=== PATIENT | female | born 1950 | race Caucasian/White ===

== ENCOUNTER 2017-07-25 10:52 | Outpatient (CLI) | payer MEDICARE, BC ==
--- NOTE | 2017-07-25 13:03 | RAD ---
FRONTAL AND LATERAL RADIOGRAPH CHEST: Date: 07-25-17 Comparison: 06-26-14 History: Shortness of breath. FINDINGS: There is no pneumothorax, pleural fluid, focal consolidation, or alveolar edema. There is mild promin ence of the cardiac silhouette and mild diffuse increased linear interstitial density. IMPRESSION: Chronic findings as above. No acute findings are seen. POS: [facility]
== END 2017-07-25 10:53 | disposition home or self-care (01) ==
LOC: RAD 10:52
PROVIDERS: ATTEND Internal Medicine Pulmonary Disease
DX: R06.00 Dyspnea, unspecified (principal)
CPT/HCPCS: 71046

== ENCOUNTER 2018-01-23 10:11 | Outpatient (CLI) | payer MEDICARE, BC ==
--- NOTE | 2018-01-23 11:11 | RAD ---
CHEST PA AND LATERAL: Date: 01/23/18 HISTORY: 67-year-old female with history of dyspnea. COMPARISON: 07/25/17. FINDINGS: Heart size is borderline enlarged. No confluent pneumonia, overt edema, or pleural effusion. IMPRESSION: Borderline heart size. Minimal stable chronic changes. Atherosclerosis of aorta. POS: [facility]
== END 2018-01-23 10:12 | disposition home or self-care (01) ==
LOC: RAD 10:11
PROVIDERS: ATTEND Internal Medicine Pulmonary Disease
DX: R06.00 Dyspnea, unspecified (principal); I70.0 Atherosclerosis of aorta
CPT/HCPCS: 71046

== ENCOUNTER 2018-08-13 13:37 | Outpatient (CLI) | payer MEDICARE ==
--- NOTE | 2018-08-13 14:06 | RAD ---
XR Chest Pa Lat @ [facility] HISTORY: Dyspnea COMPARISON: 01/23/2018 FINDINGS: The heart size is borderline but stable.. The lungs are well expanded without focal areas o f consolidation, pneumothorax or pleural effusions. Minimal chronic changes are stable. Mild degenerative changes in the spine.. IMPRESSION: No radiographic evidence of acute cardiopulmonary process.
== END 2018-08-13 13:38 | disposition home or self-care (01) ==
LOC: RAD 13:37
PROVIDERS: ATTEND Internal Medicine Pulmonary Disease
DX: R06.00 Dyspnea, unspecified (principal)
CPT/HCPCS: 71046

== ENCOUNTER 2019-02-11 14:53 | Outpatient (CLI) | payer MEDICARE ==
--- NOTE | 2019-02-17 11:58 | MMO ---
Bilateral MAMMO Bilat Screen [facility]. CLINICAL HISTORY: Patient is 68 years old and is seen for screening. The patient has no family history of breast cancer. The patient has no personal history of cancer. VIEWS: The views performed were: bilateral craniocaudal with tomosynthesis; bilateral mediolateral oblique; and bilateral mediolateral oblique with tomosynthesis. FILMS COMPARED: The present examination has been compared to prior imaging studies performed at [facility] on 02/19/2013, 05/28/2015 and 06/12/2016, and at [facility] on 09/12/2017. This study has been interpreted with the assistance of computer-aided detection. MAMMOGRAM FINDINGS: There are scattered fibroglandular densities. There are stable benign appearing calcifications seen in both breasts. There are also vascular calcifications. There are no suspicious masses, suspicious calcifications, or new areas of architectural distortion. IMPRESSION: THERE IS NO MAMMOGRAPHIC EVIDENCE OF MALIGNANCY. A ROUTINE FOLLOW-UP MAMMOGRAM IN 1 YEAR IS RECOMMENDED. THE RESULTS OF THIS EXAM WERE SENT TO THE PATIENT. ACR BI-RADS Category 2 - Benign finding MAMMOGRAPHY NOTE: 1. A negative mammogram report should not delay a biopsy if a dominant of clinically suspicious mass is present. 2. Approximately 10% to 15% of breast cancers are not detected by mammography. 3. Adenosis and dense breasts may obscure an underlying neoplasm. Reported by: ROMY LOCKE MD Electonically Signed: [id number]
== END 2019-02-11 14:54 | disposition home or self-care (01) ==
LOC: BICMAMMO 14:53
PROVIDERS: ATTEND Obstetrics & Gynecology
DX: Z12.31 Encounter for screening mammogram for malignant neoplasm of breast (principal)
CPT/HCPCS: 77063; 77067

== ENCOUNTER 2020-02-27 14:33 | Outpatient (CLI) | payer MEDICARE ==
--- NOTE | 2020-02-27 15:10 | MMO ---
Bilateral MAMMO Bilat Screen [facility]. CLINICAL HISTORY: Patient is 70 years old and is seen for screening. The patient has no family history of breast cancer. The patient has no personal history of cancer. VIEWS: The views performed were: bilateral craniocaudal with tomosynthesis and bilateral mediolateral oblique with tomosynthesis. FILMS COMPARED: The present examination has been compared to prior imaging studies performed at [facility] on 05/28/2015, 06/12/2016 and 02/11/2019, and at [facility] on 09/12/2017. This study has been interpreted with the assistance of computer-aided detection. MAMMOGRAM FINDINGS: The breasts are almost entirely fat. There are stable benign appearing calcifications seen in both breasts. There are also vascular calcifications. There are no suspicious masses, suspicious calcifications, or new areas of architectural distortion. IMPRESSION: THERE IS NO MAMMOGRAPHIC EVIDENCE OF MALIGNANCY. A ROUTINE FOLLOW-UP MAMMOGRAM IN 1 YEAR IS RECOMMENDED. THE RESULTS OF THIS EXAM WERE SENT TO THE PATIENT. ACR BI-RADS Category 2 - Benign finding MAMMOGRAPHY NOTE: 1. A negative mammogram report should not delay a biopsy if a dominant of clinically suspicious mass is present. 2. Approximately 10% to 15% of breast cancers are not detected by mammography. 3. Adenosis and dense breasts may obscure an underlying neoplasm. Reported by: ROMY LOCKE MD Electonically Signed: [id number]
== END 2020-02-27 14:34 | disposition home or self-care (01) ==
LOC: BICMAMMO 14:33
PROVIDERS: ATTEND Obstetrics & Gynecology
DX: Z12.31 Encounter for screening mammogram for malignant neoplasm of breast (principal)
CPT/HCPCS: 77063; 77067

== ENCOUNTER 2020-07-03 15:40 | Emergency (ER) | payer MEDICARE ==
[2020-07-03] MEDS ORDERED: predniSONE 20 MG TAB ONE (16:37)
[2020-07-03] MEDS ORDERED: diphenhydrAMINE 50 MG CAP PO PRN (16:42)
[2020-07-03] MEDS ORDERED: diphenhydrAMINE 25 MG CAP ONE (17:18)
== END 2020-07-03 17:56 | disposition home or self-care (01) ==
LOC: ERS 15:40
DX: T63.2X1A Toxic effect of venom of scorpion, accidental (unintentional), initial encounter (principal); E78.5 Hyperlipidemia, unspecified; E78.00 Pure hypercholesterolemia, unspecified; I10 Essential (primary) hypertension; J45.909 Unspecified asthma, uncomplicated
CPT/HCPCS: 99283; J7512; Q0163

== ENCOUNTER 2021-03-07 09:49 | Outpatient (CLI) | payer MEDICARE | END 2021-03-07 09:50 | disposition home or self-care (01) | LOC: BICMAMMO 09:49 | PROVIDERS: ATTEND Obstetrics & Gynecology | DX: Z12.31 Encounter for screening mammogram for malignant neoplasm of breast (principal) | CPT/HCPCS: 77063; 77067 ==

== ENCOUNTER 2021-03-30 07:57 | Outpatient (CLI) | payer MEDICARE | END 2021-03-30 07:58 | disposition home or self-care (01) | LOC: RAD 07:57 | PROVIDERS: ATTEND Internal Medicine Critical Care Medicine | DX: R06.00 Dyspnea, unspecified (principal) | CPT/HCPCS: 71046 ==

== ENCOUNTER 2022-03-30 08:06 | Outpatient (CLI) | payer MEDICARE | END 2022-03-30 08:07 | disposition home or self-care (01) | LOC: RAD 08:06 | PROVIDERS: ATTEND Internal Medicine Critical Care Medicine | DX: R06.00 Dyspnea, unspecified (principal) | CPT/HCPCS: 71046 ==

== ENCOUNTER 2022-05-02 14:22 | Outpatient (CLI) | payer MEDICARE | END 2022-05-02 14:23 | disposition home or self-care (01) | LOC: BICMAMMO 14:22 | PROVIDERS: ATTEND Obstetrics & Gynecology | DX: Z12.31 Encounter for screening mammogram for malignant neoplasm of breast (principal) | CPT/HCPCS: 77063; 77067 ==

== ENCOUNTER 2022-10-10 15:32 | Emergency (ER) | payer OTHER ==
[2022-10-10] MEDS ORDERED: Morphine 4 MG/ML VIAL ONE (17:19)
[2022-10-10] MEDS ORDERED: Acetaminophen 500 MG TAB ONE (17:44)
[2022-10-10] MEDS ORDERED: traMADol HCl 50 MG TAB ONE (18:33)
== END 2022-10-10 18:46 | disposition home or self-care (01) ==
LOC: ERS 15:32
DX: S82.61XA Displaced fracture of lateral malleolus of right fibula, initial encounter for closed fracture (principal); S80.02XA Contusion of left knee, initial encounter; S00.83XA Contusion of other part of head, initial encounter; S50.312A Abrasion of left elbow, initial encounter; S50.311A Abrasion of right elbow, initial encounter; I10 Essential (primary) hypertension; E78.00 Pure hypercholesterolemia, unspecified; W01.0XXA Fall on same level from slipping, tripping and stumbling without subsequent striking against object, initial encounter; Z87.891 Personal history of nicotine dependence; Z79.899 Other long term (current) drug therapy
CPT/HCPCS: 70450; 71045; 72125; 72131; J2270

== ENCOUNTER 2023-02-07 10:34 | Outpatient (CLI) | payer MEDICARE, OTHER | END 2023-02-07 10:35 | disposition home or self-care (01) | LOC: RAD 10:34 | PROVIDERS: ATTEND Internal Medicine Critical Care Medicine | DX: R06.00 Dyspnea, unspecified (principal) | CPT/HCPCS: 71046 ==

== ENCOUNTER 2023-07-25 13:07 | Outpatient (CLI) | payer MEDICARE, OTHER | END 2023-07-25 13:08 | disposition home or self-care (01) | LOC: BICMAMMO 13:07 | PROVIDERS: ATTEND Obstetrics & Gynecology | DX: M85.89 Other specified disorders of bone density and structure, multiple sites (principal); Z78.0 Asymptomatic menopausal state | CPT/HCPCS: 77080 ==